=== PATIENT | male | born 2000 | race Two or more races ===

== ENCOUNTER 2024-06-10 11:36 | Outpatient (CLI) | payer OTHER | END 2024-06-10 11:54 | disposition home or self-care (01) | LOC: TOM 11:36 | PROVIDERS: ATTEND General Practice | DX: R51.9 Headache, unspecified (principal); S06.0X0A Concussion without loss of consciousness, initial encounter; R10.30 Lower abdominal pain, unspecified; R10.9 Unspecified abdominal pain ==

== ENCOUNTER 2024-06-20 17:06 | Emergency (ER) | payer OTHER ==
[~2024-06-20] VITALS: Ht 180.3 cm; Wt 81.6 kg
[2024-06-20] MEDS ORDERED: KETOROLAC TROMETHAMINE 60 MG VIAL IM ONE (20:30)
[2024-06-20] MEDS ORDERED: ORPHENADRINE CITRATE 30 MG/ML AMPUL IM ONE (20:30)
== END 2024-06-20 23:01 | disposition home or self-care (01) ==
LOC: ER 17:08
DX: R53.81 Other malaise (principal); M62.838 Other muscle spasm; G44.209 Tension-type headache, unspecified, not intractable